=== PATIENT | female | born 1980 | race African-American/Black ===

== ENCOUNTER 2018-08-16 07:18 | Emergency (ER) | payer OTHER ==
[~2018-08-16] VITALS: Ht 172.7 cm; Wt 157.4 kg
[~2018-08-16 07:18] MED LIST: ALBUTEROL INHAL17 GM INH; BACTRIM DS TAB1 EACH PO; CORICIDIN HBP1 EACH PO; COUGH; FAMOTIDINE 10 M10 MG PO; FLONASE 0.05%50 MCG NS; GLUCOPHAGE XR500 MG PO; HCTZ PO; HYDROCHLOROTH12.5 M1 PO; HYDROCHLOROTH12.5 MG PO; HYDROCHLOROTHIA25 M1 PO; IBUPROFEN 600600 M1 PO; IBUPROFEN 800800 MG PO; IRON325 PO; LISINOPRIL/HCTZ; LOPRESSOR 50 MG50 M1 PO; LOPRESSOR100 MG PO; LOPRESSOR25; LOSARTAN-HCTZ1 EACH PO; MOBIC15 MG PO; NAPROSYN500 MG PO; NORCO 5-325 TA1 EACH PO; PHENERGAN-CODE120 ML PO; PREDNISONE 20 M20 M1 PO; PREDNISONE 20 M20 MG PO; TOPROL XL100 MG PO; TOPROL XL50 MG PO; VALIUM5 MG PO; VENTOLIN17 GM INH; ZPAK PO
[2018-08-16] MEDS ORDERED: COZAAR 25 MG TA25 M1 PO (07:40)
[2018-08-16 07:42] LABS: URINE BILIRUBIN NEGATIVE (Negative); URINE BLOOD NEGATIVE (Negative); URINE CLARITY SL HAZY; URINE COLOR YELLOW; URINE GLUCOSE-RANDOM* NEGATIVE (Negative); URINE KETONES NEGATIVE (Negative); URINE LEUKOCYTES-REFLEX 1+ (Negative); URINE NITRITE-REFLEX NEGATIVE (Negative); URINE PROTEIN (DIPSTICK) TRACE (Negative); URINE SPECIFIC GRAVITY 1.025 (1.005-1.035); URINE UROBILINOGEN 0.2 E.U./dl (0.2-1.0)
[2018-08-16 07:46] LABS: BACTERIA-REFLEX >30 Many /HPF (None Seen); SQUAMOUS >10 Many /LPF (0-3)
[2018-08-16 07:47] LABS: CASTS None Seen /LPF (None Seen); CRYSTALS None Seen /LPF (None Seen); URINE RBC None Seen /HPF (0-2); URINE WBC-REFLEX 6-15 Few /HPF (0-5)
[2018-08-16] MEDS ORDERED: MACROBID 100 M100 M2 PO (09:22)
[2018-08-16 09:33] VITALS: BP 175/103
== END 2018-08-16 09:34 | disposition home or self-care (01) ==
LOC: ER 07:18
PROVIDERS: Student in an Organized Health Care Education/Training Program
DX: N39.0 Urinary tract infection, site not specified (principal); R11.0 Nausea; F17.210 Nicotine dependence, cigarettes, uncomplicated; I48.91 Unspecified atrial fibrillation; I10 Essential (primary) hypertension; J45.909 Unspecified asthma, uncomplicated; E11.9 Type 2 diabetes mellitus without complications; G47.30 Sleep apnea, unspecified; E66.9 Obesity, unspecified; Z68.43 Body mass index [BMI] 50.0-59.9, adult

== ENCOUNTER 2018-10-09 17:40 | Emergency (ER) | payer OTHER ==
[~2018-10-09] VITALS: Ht 172.7 cm; Wt 151.1 kg
[~2018-10-09 17:40] MED LIST changes: +COZAAR 25 MG TA25 M1 PO; +MACROBID 100 M100 M2 PO
[2018-10-09 18:15] LABS: URINE BLOOD NEGATIVE (Negative); URINE CLARITY CLEAR; URINE COLOR YELLOW; URINE GLUCOSE-RANDOM* NEGATIVE (Negative); URINE KETONES 1+ (Negative); URINE LEUKOCYTES-REFLEX NEGATIVE (Negative); URINE NITRITE-REFLEX NEGATIVE (Negative); URINE PROTEIN (DIPSTICK) TRACE (Negative); URINE SPECIFIC GRAVITY >= 1.030 (1.005-1.035); URINE UROBILINOGEN 0.2 E.U./dl (0.2-1.0)
[2018-10-09 18:18] LABS: ICTOTEST (BILI CONFIRMATORY) Negative (Negative); URINE BILIRUBIN NEGATIVE (Negative)
[2018-10-09 21:36] VITALS: BP 118/71
== END 2018-10-09 21:37 | disposition home or self-care (01) ==
LOC: ER 17:40
PROVIDERS: Emergency Medicine
DX: N89.8 Other specified noninflammatory disorders of vagina (principal); F17.210 Nicotine dependence, cigarettes, uncomplicated; I48.91 Unspecified atrial fibrillation; I10 Essential (primary) hypertension; J45.909 Unspecified asthma, uncomplicated; E11.9 Type 2 diabetes mellitus without complications; G47.30 Sleep apnea, unspecified; E66.9 Obesity, unspecified; Z68.43 Body mass index [BMI] 50.0-59.9, adult

== ENCOUNTER 2019-04-04 13:25 | Emergency (ER) | payer OTHER ==
[~2019-04-04] VITALS: Ht 172.7 cm; Wt 111.6 kg
[2019-04-04] MEDS ORDERED: SPIRONOLACTONE25 M1 PO (13:29)
[2019-04-04] MEDS ORDERED: INDOMETHACIN 2525 MG PO (14:37)
[2019-04-04 14:45] VITALS: BP 130/72
== END 2019-04-04 14:59 | disposition home or self-care (01) ==
LOC: ER 13:25
DX: M10.9 Gout, unspecified (principal); J45.909 Unspecified asthma, uncomplicated; I10 Essential (primary) hypertension; I48.91 Unspecified atrial fibrillation; E11.9 Type 2 diabetes mellitus without complications; F17.210 Nicotine dependence, cigarettes, uncomplicated; G47.30 Sleep apnea, unspecified; Z79.899 Other long term (current) drug therapy

== ENCOUNTER 2019-12-07 16:23 | Inpatient (IN) | payer BC, OTHER ==
[~2019-12-07] VITALS: Ht 172.7 cm; Wt 91.1 kg
[~2019-12-07 16:23] MED LIST changes: +INDOMETHACIN 2525 MG PO; +SPIRONOLACTONE25 M1 PO
[2019-12-07 16:28] VITALS: BP 117/61
[2019-12-07] MEDS ORDERED: METOPROLOL SUCC50 MG PO (17:02)
[2019-12-07] MEDS ORDERED: PRINIVIL5 MG PO (17:02)
[2019-12-07] MEDS ORDERED: AMLODIPINE BESY10 MG PO (17:02)
[2019-12-07 17:35] LABS: ABSOLUTE NEUTROPHILS 11.1 thou/uL (1.4-8.2); BASOPHILS 0.4 % (0.0-2.0); EOSINOPHILS 0.2 % (0.0-3.0); HEMATOCRIT 38.8 % (37.0-47.0); HEMOGLOBIN 12.9 gm/dL (12.0-15.0); LYMPHOCYTES 3.9 % (24.0-44.0); MCHC 33.2 g/dL (28.0-37.0); MCV 93.3 fL (80.0-100.0); MONOCYTES 7.8 % (1.0-8.0); PLATELET COUNT 259 thou/uL (150-400); POLYS 87.7 % (36.0-66.0); RBC 4.16 mil/uL (4.20-5.00); RDW 13.5 % (10.5-14.5); WBC 12.7 thou/uL (4.0-11.0)
[2019-12-07 17:43] LABS: CALCIUM 9.2 mg/dL (8.5-10.1); CREATININE 1.2 mg/dL (0.6-1.0); POTASSIUM 4.3 mmol/L (3.5-5.1)
[2019-12-07 17:48] LABS: ALBUMIN 2.2 g/dL (3.4-5.0); TOTAL BILIRUBIN 0.6 mg/dL (<0.1-1.0); TOTAL PROTEIN 8.4 g/dL (6.4-8.2)
[2019-12-07 20:55] LABS: URINE BILIRUBIN NEGATIVE (Negative); URINE BLOOD NEGATIVE (Negative); URINE CLARITY CLEAR; URINE COLOR YELLOW; URINE GLUCOSE-RANDOM* NEGATIVE (Negative); URINE KETONES NEGATIVE (Negative); URINE LEUKOCYTES-REFLEX NEGATIVE (Negative); URINE NITRITE-REFLEX NEGATIVE (Negative); URINE PROTEIN (DIPSTICK) NEGATIVE (Negative)
[2019-12-07 21:29] VITALS: BP 102/51
[2019-12-07 22:05] VITALS: BP 116/81
[2019-12-08 04:43] VITALS: BP 109/56
[2019-12-08 07:27] VITALS: BP 104/59
[2019-12-08 08:38] LABS: HEMATOCRIT 34.6 % (37.0-47.0); HEMOGLOBIN 11.6 gm/dL (12.0-15.0); MCHC 33.5 g/dL (28.0-37.0); MCV 92.6 fL (80.0-100.0); RBC 3.73 mil/uL (4.20-5.00); RDW 13.5 % (10.5-14.5); WBC 10.7 thou/uL (4.0-11.0)
[2019-12-08 08:48] LABS: ALBUMIN 1.8 g/dL (3.4-5.0); CALCIUM 8.5 mg/dL (8.5-10.1); CREATININE 1.1 mg/dL (0.6-1.0); PHOSPHORUS 4.4 mg/dL (2.5-4.9); POTASSIUM 4.1 mmol/L (3.5-5.1)
[2019-12-08 16:39] VITALS: BP 126/68
[2019-12-08 19:23] VITALS: BP 119/97
[2019-12-09 02:48] VITALS: BP 123/82
[2019-12-09 07:39] VITALS: BP 123/75
[2019-12-09] MEDS ORDERED: LEVAQUIN 500 M500 M3 PO (08:36)
[2019-12-09] MEDS ORDERED: METRONIDAZOLE500 M4 PO (08:36)
[2019-12-09] MEDS ORDERED: HYDROCODONE-ACE15 ML PO (08:37)
[2019-12-09 09:45] VITALS: BP 123/75
[2019-12-09 10:20] VITALS: BP 123/75
== END 2019-12-09 12:31 | disposition home or self-care (01) | DRG 391 ==
LOC: ER 16:23 → 4S 21:09 → EROBS 21:09 → 4S 21:59
PROVIDERS: Physician Assistant; Surgery; ADMIT Surgery
DX: R10.9 Unspecified abdominal pain (principal); E43 Unspecified severe protein-calorie malnutrition; R65.10 Systemic inflammatory response syndrome (SIRS) of non-infectious origin without acute organ dysfunction; I48.91 Unspecified atrial fibrillation; I10 Essential (primary) hypertension; J45.909 Unspecified asthma, uncomplicated; E11.9 Type 2 diabetes mellitus without complications; E66.9 Obesity, unspecified; F17.210 Nicotine dependence, cigarettes, uncomplicated; Z68.30 Body mass index [BMI] 30.0-30.9, adult; Z79.899 Other long term (current) drug therapy
CPT/HCPCS: 10100; 10195

== ENCOUNTER → 2020-01-19 | Outpatient (CLI) | payer BC, OTHER ==
[~2020-01-19] MED LIST changes: +AMLODIPINE BESY10 MG PO; +HYDROCODONE-ACE15 ML PO; +LEVAQUIN 500 M500 M3 PO; +METOPROLOL SUCC50 MG PO; +METRONIDAZOLE500 M4 PO; +PRINIVIL5 MG PO
--- NOTE | 2020-01-19 14:59 | NUR ---
PT IN FOR GROSHONG EXCHANGE DUE TO LEAKING. IR NOT AVAILABLE SO I WAS ASKED TO PLACE THE PICC. PT STATED THIS WAS HER 2ND GROSHONG IN 3 WEEKS THAT WAS LEAKING, NO REPAIR KITS IN HOUSE TO ATTEMPT REPAIR IF THE LINE INTEGRITY WAS COMPROMISED. PT NEEDING IV ABX AND TPN WITH HOME HEALTH. 4FRDBLPICC PLACED IN LT ARM PT IS RT HANDED. TIP AT THE [facility], IR TECH IN TO REMOVE GROSHONG PER MD. CXR CONFIRMED TIP FOR PICC AT THE CA[facility] BUT THE GROSHONG TIP WAS UP THE IJ.
== END | disposition home or self-care (01) ==
LOC: SPEC 10:56
DX: Z45.2 Encounter for adjustment and management of vascular access device (principal); T82.524A Displacement of infusion catheter, initial encounter; I10 Essential (primary) hypertension; I48.91 Unspecified atrial fibrillation; E11.9 Type 2 diabetes mellitus without complications; J45.909 Unspecified asthma, uncomplicated; G47.30 Sleep apnea, unspecified; E66.09 Other obesity due to excess calories; M10.9 Gout, unspecified; F17.210 Nicotine dependence, cigarettes, uncomplicated; Z98.890 Other specified postprocedural states; Z79.899 Other long term (current) drug therapy; Z79.01 Long term (current) use of anticoagulants; Y83.8 Other surgical procedures as the cause of abnormal reaction of the patient, or of later complication, without mention of misadventure at the time of the procedure
CPT/HCPCS: 27000